=== PATIENT | female | born 2000 | race Caucasian/White ===

== ENCOUNTER 2020-01-05 11:47 | Outpatient (CLI) | payer OTHER ==
--- NOTE | 2020-01-05 13:09 | RAD ---
XR Cervical Sp Com W/Obl Fl/Ex History: Cervicalgia Comparison: None. Findings: Bilateral cortical screws are noted within the mandibular angle. No acute fracture or malal ignment. No significant listhesis. Paraspinal soft tissues are normal. No high-grade osseous neural foraminal narrowing. Plate-screw fixation projects over the maxilla bilaterally. Mild levoscoliosis centered at the upper thoracic spine. Impression: No acute osseous abnormality. No significant listhesis.
== END 2020-01-05 11:48 | disposition home or self-care (01) ==
LOC: SCSRAD 11:47
PROVIDERS: ATTEND Student in an Organized Health Care Education/Training Program
DX: M54.2 Cervicalgia (principal)
CPT/HCPCS: 72052